=== PATIENT | male | born 1980 | race Caucasian/White ===

== ENCOUNTER 2017-02-08 12:25 | Emergency (ER) | payer BC ==
[~2017-02-08] VITALS: Ht 180.3 cm; Wt 95.2 kg
--- NOTE | ~2017-02-08 | CR141 ---
[facility] A Service of [facility] & [facility] RADIOLOGY TEXT RESULTS PATIENT: SIN MORAES LOCATION: CFTX : 76 UNIT #: [id number] AGE: [address]: Majo Valdez APRN SEX: M ORDER DR: [id number] [facility] [address] [place], [place] [address] [id number] E MR#: [id number] Acc #: [id number] NAME: SIN MORAES. : 1980 SEX: M STUDY DATE/TIME: 02/08/2017 13:10 UNIT: [facility] ROOM: STUDY DESCRIPTION: CR Hand Min 3 Views Lt Attending Physician: Majo Valdez A.P.R.N. Ordering Physician: Ed Loyd Trejo M.D. Primary Care Physician: Primary Care Physician No MEDICAL IMAGING REPORT This report is preliminary unless electronic signature is present EXAM Left hand, 3 views HISTORY Hand pain and swelling after dog bite today. FINDINGS AP, lateral, and oblique projections of the hand show good mineralization with normal carpal, metacarpal, and phalangeal anatomy without indication of fracture, dislocation, or soft tissue radiopaque foreign body. IMPRESSION Normal hand. Dictated by... Boom Balderrama M.D. THIS IS AN ELECTRONICALLY VERIFIED REPORT Boom Balderrama M.D. at 02/08/2017 9:37 PM DFL/psc TD: 02/08/2017 21:18 JOB #: [id number] MEDICAL IMAGING REPORT Page 1 of 1 COPY
[~2017-02-08 12:25] MED LIST: AMBIEN CR PO; LORTAB 7.5-5001 TAB PO; SOLU MEDROL IV
== END 2017-02-08 14:31 | disposition home or self-care (01) ==
LOC: CED 12:25 → CFTX 12:25
DX: S61.452A Open bite of left hand, initial encounter (principal); R03.0 Elevated blood-pressure reading, without diagnosis of hypertension; Z88.0 Allergy status to penicillin; Z79.899 Other long term (current) drug therapy; Z23 Encounter for immunization; W54.0XXA Bitten by dog, initial encounter; Y92.89 Other specified places as the place of occurrence of the external cause
CPT/HCPCS: 29130; 73130; 90471; 90715; 99283